=== PATIENT | male | born 1955 | race American Indian/Alaskan Native ===

== ENCOUNTER 2020-05-03 16:09 | Emergency (ER) | payer MEDICARE ==
--- NOTE | 2020-05-03 17:23 | Emergency Department Report ---
Chief Complaint: Medical Clearance Stated Complaint: ABNORMAL EKG Time Seen by Provider: 05/03/20 17:30 - HPI History of Present Illness: This is a 64-year-old male with longstanding history of high blood pressure not controlled with medication who was sent here by his primary care physician for an abnormal EKG and elevated blood pressure times today. Patient states that he has not been taking his blood pressure medication for some time now. Patient states he was trying to reduce it with diet and exercise. - Exam Vital Signs: Vital Signs 05/03/20 16:22 Temperature 98.4 F Pulse Rate 91 H Respiratory 20 Rate Blood Pressure 203/124 [Right] O2 Sat by Pulse 100 Oximetry MSE screening note: Focused history and physical exam performed. Due to findings the following was ordered: ED Disposition for MSE Condition: Stable Prescriptions: Losartan/Hydrochlorothiazide [Losartan-Hctz 100-25 mg Tab] 1 each PO DAILY #60 tablet
[2020-05-03] MEDS ORDERED: cloNIDine 0.2 MG TAB PO ONE (17:24)
--- NOTE | 2020-05-03 17:45 | Emergency Department Report ---
ED General Adult HPI - General Chief complaint: Medical Clearance Stated complaint: ABNORMAL EKG PUI?: No Time Seen by Provider: 05/03/20 17:30 Source: patient Mode of arrival: Ambulatory Limitations: No Limitations - History of Present Illness Initial comments: This is a 64-year-old male with longstanding history of high blood pressure not controlled with medication who was sent here by his primary care physician for an abnormal EKG and elevated blood pressure times today. Patient states that he has not been taking his blood pressure medication for some time now. Patient states he was trying to reduce it with diet and exercise. Patient states that he was told by his primary care physician to come to the ED for evaluation. Patient denies any fever, chills, nausea, chest pain, headache, blurry vision ,dizziness. Severity scale (0 -10): 0 - Related Data Home Medications Medication Instructions Recorded Confirmed Last Taken Cyclobenzaprine [Flexeril 10 MG 10 mg PO BID PRN 03/06/14 05/08/14 04/30/14 TAB] Famotidine [Pepcid] 40 mg PO QHS 03/06/14 05/08/14 05/07/14 NIFEdipine XL [Procardia Xl] 60 mg PO QDAY 03/06/14 05/08/14 05/07/14 19:30 atenoloL [Tenormin] 50 mg PO DAILY 03/06/14 05/08/14 05/08/14 08:00 traMADoL [Ultram 50 MG tab] 50 mg PO BID PRN 03/06/14 05/08/14 04/30/14 Previous Rx's Medication Instructions Recorded Last Taken Type Aspirin [Aspirin BABY CHEW TAB] 81 mg PO QDAY #30 tab.chew 03/11/14 05/07/14 Rx 81 MG Ipratropium/Albuterol Sulfate 1 spray IH QID PRN #1 aer.w.adap 03/11/14 05/06/14 Rx [Combivent Respimat] lisinopriL [Zestril TAB] 5 mg PO QDAY #30 tablet 03/11/14 05/06/14 Rx Albuterol Mdi (or & Nicu Only) 2 puff IH QID PRN #1 pump 05/03/20 Unknown Rx [ProAir HFA Inhaler] Losartan/Hydrochlorothiazide 1 each PO DAILY #60 tablet 05/03/20 Unknown Rx [Losartan-Hctz 100-25 mg Tab] Allergies Allergy/AdvReac Type Severity Reaction Status Date / Time No Known Allergies Allergy Verified 05/03/20 16:11 ED Review of Systems ROS: Stated complaint: ABNORMAL EKG Other details as noted in HPI Comment: All other systems reviewed and negative ED Past Medical Hx - Past Medical History Hx Hypertension: Yes (Denies CP) Hx GERD: Yes Hx Asthma: No - Surgical History Hx Pacemaker: No Hx Internal Defibrillator: No - Social History Smoking Status: Never Smoker Substance Use Type: None - Medications Home Medications: Home Medications Medication Instructions Recorded Confirmed Last Taken Type Cyclobenzaprine [Flexeril 10 MG 10 mg PO BID PRN 03/06/14 05/08/14 04/30/14 History TAB] Famotidine [Pepcid] 40 mg PO QHS 03/06/14 05/08/14 05/07/14 History NIFEdipine XL [Procardia Xl] 60 mg PO QDAY 03/06/14 05/08/14 05/07/14 19:30 History atenoloL [Tenormin] 50 mg PO DAILY 03/06/14 05/08/14 05/08/14 08:00 History traMADoL [Ultram 50 MG tab] 50 mg PO BID PRN 03/06/14 05/08/14 04/30/14 History Aspirin [Aspirin BABY CHEW TAB] 81 mg PO QDAY #30 tab.chew 03/11/14 05/08/14 05/07/14 Rx 81 MG Ipratropium/Albuterol Sulfate 1 spray IH QID PRN #1 aer.w.adap 03/11/14 05/08/14 05/06/14 Rx [Combivent Respimat] lisinopriL [Zestril TAB] 5 mg PO QDAY #30 tablet 03/11/14 05/08/14 05/06/14 Rx Albuterol Mdi (or & Nicu Only) 2 puff IH QID PRN #1 pump 05/03/20 Unknown Rx [ProAir HFA Inhaler] Losartan/Hydrochlorothiazide 1 each PO DAILY #60 tablet 05/03/20 Unknown Rx [Losartan-Hctz 100-25 mg Tab] ED Physical Exam - General Limitations: No Limitations General appearance: alert, in no apparent distress - Head Head exam: Present: atraumatic, normocephalic, normal inspection - Eye Eye exam: Present: normal appearance, PERRL Pupils: Present: normal accommodation - ENT ENT exam: Present: mucous membranes moist - Neck Neck exam: Present: normal inspection - Respiratory Respiratory exam: Present: normal lung sounds bilaterally. Absent: respiratory distress, wheezes, rales, rhonchi, chest wall tenderness, accessory muscle use, decreased breath sounds - Cardiovascular Cardiovascular Exam: Present: regular rate, normal rhythm. Absent: irregular rhythm, systolic murmur, diastolic murmur, rubs, gallop, clicks - GI/Abdominal GI/Abdominal exam: Present: soft, normal bowel sounds. Absent: distended, tenderness - Rectal Rectal exam: Present: deferred - Extremities Exam Extremities exam: Present: normal inspection, full ROM - Back Exam Back exam: Present: normal inspection, full ROM. Absent: CVA tenderness (R), muscle spasm - Neurological Exam Neurological exam: Present: alert, oriented X3, CN II-XII intact, normal gait - Psychiatric Psychiatric exam: Present: normal affect, normal mood - Skin Skin exam: Present: warm, dry, intact, normal color. Absent: rash ED Course Vital Signs 05/03/20 05/03/20 05/03/20 16:22 17:30 18:09 Temperature 98.4 F Pulse Rate 91 H 91 H 86 Respiratory 20 Rate Blood Pressure 203/124 Blood Pressure 203/124 207/123 [Right] O2 Sat by Pulse 100 Oximetry 05/03/20 05/03/20 19:06 19:14 Temperature Pulse Rate 83 Respiratory 18 18 Rate Blood Pressure Blood Pressure 157/109 [Right] O2 Sat by Pulse 100 Oximetry ED Medical Decision Making - Lab Data Result diagrams: 05/03/20 17:57 05/03/20 17:57 Laboratory Last Values WBC 5.0 K/mm3 (4.5-11.0) 05/03/20 17:57 RBC 5.38 M/mm3 (3.65-5.03) H 05/03/20 17:57 Hgb 16.2 gm/dl (11.8-15.2) H 05/03/20 17:57 Hct 47.9 % (35.5-45.6) H 05/03/20 17:57 MCV 89 fl (84-94) 05/03/20 17:57 MCH 30 pg (28-32) 05/03/20 17:57 MCHC 34 % (32-34) 05/03/20 17:57 RDW 13.7 % (13.2-15.2) 05/03/20 17:57 Plt Count 232 K/mm3 (140-440) 05/03/20 17:57 Lymph % (Auto) 35.7 % (13.4-35.0) H 05/03/20 17:57 Lawrence % (Auto) 8.2 % (0.0-7.3) H 05/03/20 17:57 Eos % (Auto) 0.8 % (0.0-4.3) 05/03/20 17:57 Baso % (Auto) 0.5 % (0.0-1.8) 05/03/20 17:57 Lymph # (Auto) 1.8 K/mm3 (1.2-5.4) 05/03/20 17:57 Lawrence # (Auto) 0.4 K/mm3 (0.0-0.8) 05/03/20 17:57 Eos # (Auto) 0.0 K/mm3 (0.0-0.4) 05/03/20 17:57 Baso # (Auto) 0.0 K/mm3 (0.0-0.1) 05/03/20 17:57 Seg Neutrophils % 54.8 % (40.0-70.0) 05/03/20 17:57 Seg Neutrophils # 2.7 K/mm3 (1.8-7.7) 05/03/20 17:57 Sodium 143 mmol/L (137-145) 05/03/20 17:57 Potassium 4.2 mmol/L (3.6-5.0) 05/03/20 17:57 Chloride 102.8 mmol/L (98-107) 05/03/20 17:57 Carbon Dioxide 30 mmol/L (22-30) 05/03/20 17:57 Anion Gap 14 mmol/L 05/03/20 17:57 BUN 13 mg/dL (9-20) 05/03/20 17:57 Creatinine 0.9 mg/dL (0.8-1.3) 05/03/20 17:57 Estimated GFR > 60 ml/min 05/03/20 17:57 BUN/Creatinine Ratio 14 % 05/03/20 17:57 Glucose 87 mg/dL (75-100) 05/03/20 17:57 Calcium 9.2 mg/dL (8.4-10.2) 05/03/20 17:57 Total Creatine Kinase 155 units/L (55-170) 05/03/20 17:57 Troponin T < 0.010 ng/mL (0.00-0.029) 05/03/20 17:57 NT-Pro-B Natriuret Pep 1437 pg/mL (0-900) H 05/03/20 17:57 - Radiology Data Radiology results: report reviewed, image reviewed - Medical Decision Making This 64-year-old male with a longstanding history of hypertension presents with h uncontrolled hypertension. EKG that was done in 2013 was compared to the EKG done today. EKG was the same there was no change. All labs normal except the proBNP which was mildly elevated at 1400. Based on my examination patient had no rales or any signs of CHF. The patient's history of lymphoma and bronchitis exertional dyspnea has been going on for couple of months so this is not new. Patient does note that he normally uses inhaler feels short of breath and feels better. Will be sending patient home on refill inhaler Patient also had a EKG done by the EMS to come to his home which was also the same as the one in the ED today. There has been no change in EKG from 2013 compared to now. Patient is here in the ED with no symptoms throughout ED stay. I did medicate patient with clonidine 0.2 for blood pressure control. Patient states that his doctor has prescribed his blood pressure medication and has been sent to [facility] so he can start using it daily. Patient also states that he does have a follow-up with his primary care physician. I discussed with patient that he needs to follow-up outpatient with a glove brusher as soon as possible within 2 to 3 days. I did discuss with patient if he has any worsening symptoms he may return to the ED. Blood pressure control education given to patient. Patient understands instructions as given. Critical care attestation.: If time is entered above; I have spent that time in minutes in the direct care of this critically ill patient, excluding procedure time. ED Disposition Clinical Impression: Uncontrolled hypertension, Abnormal EKG Disposition: - TO HOME OR SELFCARE Is pt being admited?: No Does the pt Need Aspirin: No Condition: Stable Instructions: Managing Your Hypertension, Hypertension, Adult, Hypertension (ED) Additional Instructions: Make sure to follow up with the primary care physician as discussed. Make sure you follow-up with the glove brusher as referred Take all your medications as you've been prescribed. If you have any worsening symptoms or develop new symptoms please return to ED immediately. Prescriptions: Losartan/Hydrochlorothiazide [Losartan-Hctz 100-25 mg Tab] 1 each PO DAILY #60 tablet Albuterol Mdi (or & Nicu Only) [ProAir HFA Inhaler] 2 puff IH QID PRN #1 pump PRN Reason: Shortness Of Breath Referrals: PRIMARY CARE, [Primary Care Provider] - 3-5 Days LEAH CHRISTIAN MD [Staff Physician] - 3-5 Days RUDY SCHULTZ MD [Staff Physician] - 3-5 Days [facility] [Provider Group] - 3-5 Days Forms: Work/School Release Form(ED) Time of Disposition: 19:02
--- NOTE | 2020-05-03 17:59 | XRay Report ---
XR chest routine 2V INDICATION / CLINICAL INFORMATION: sob COMPARISON: None available. FINDINGS: SUPPORT DEVICES: None. HEART / MEDIASTINUM: No significant abnormality. LUNGS / PLEURA: Minimal bibasilar opacities. Costophrenic sulci are sharp. No pneumothorax. ADDITIONAL FINDINGS: No significant additional findings. IMPRESSION: 1. Minimal bibasilar opacities favored to represent atelectasis. No definite airspace disease. Signer Name: Juan Manuel Augustin MD Signed: 05/03/2020 5:55 PM Workstation Name: [id number]
[2020-05-03 18:36] LABS: Basophils % (Auto) 0.5 % (0.0-1.8); Eosinophils % (Auto) 0.8 % (0.0-4.3); Hematocrit 47.9 % (35.5-45.6); Hemoglobin 16.2 gm/dl (11.8-15.2); Lymphocytes # (Auto) 1.8 K/mm3 (1.2-5.4); Lymphocytes % (Auto) 35.7 % (13.4-35.0); Mean Corpuscular HGB Conc 34 % (32-34); Mean Corpuscular Volume 89 fl (84-94); Monocytes # (Auto) 0.4 K/mm3 (0.0-0.8); Monocytes % (Auto) 8.2 % (0.0-7.3); Platelet Count 232 K/mm3 (140-440); Red Blood Count 5.38 M/mm3 (3.65-5.03); Red Cell Distribution Width 13.7 % (13.2-15.2)
[2020-05-03 18:47] LABS: BUN/Creatinine Ratio 14; Blood Urea Nitrogen 13 mg/dL (9-20); Calcium 9.2 mg/dL (8.4-10.2); Hemolysis Index 4
[2020-05-03 19:07] VITALS: BP 157/109
== END 2020-05-03 19:11 | disposition home or self-care (01) ==
LOC: ED 16:09
DX: I10 Essential (primary) hypertension (principal); R94.31 Abnormal electrocardiogram [ECG] [EKG]; K21.9 Gastro-esophageal reflux disease without esophagitis; Z79.899 Other long term (current) drug therapy
CPT/HCPCS: 36415; 71046; 80048; 82550; 83880; 84484; 85025; 93005